=== PATIENT | male | born 1995 | race Caucasian/White ===

== ENCOUNTER 2020-09-25 20:51 | Emergency (ER) | payer OTHER ==
[~2020-09-25] VITALS: Ht 157.5 cm; Wt 93.0 kg
[~2020-09-25 20:51] MED LIST: PRO40 PO
[2020-09-25 21:20] VITALS: BP_SYST 152
--- NOTE | 2020-09-25 21:21 | NUR ---
Pt came in to the emergency department c/o testicular pain which has been present for 2 days. Pt claimed it has been progressively getting worse. Denied any accident/injuries. He didn't engage in heavy lifting, no discharge, no urinary problem. Pt breathing easy, ambulatory with steady gait, no other symptoms noted.
--- NOTE | 2020-09-25 21:28 | NUR ---
Patient triaged and placed in waiting room. VSS and patient appears in no acute distress at this time.Awaiting available bed, and MD notified of need for MSE.
--- NOTE | 2020-09-25 21:39 | NUR ---
ER in triage examining patient.
[2020-09-25] MEDS: KETOROLAC TROMETHAMINE 60 MG/2 ML VIAL IM ONE (23:56)
[2020-09-26] MEDS ORDERED: IBUP-1970 PO (00:18)
[2020-09-26] MEDS ORDERED: ONDA4TAB5 PO (00:30)
[2020-09-26 00:35] VITALS: BP_SYST 142
--- NOTE | 2020-09-26 00:35 | NUR ---
Patient given written and verbal discharge instructions and verbalizes understanding. ER MD discussed with patient the results and treatment provided. Patient in stable condition. ID arm band removed. Rx of Chalmers, Ibuprofen, and Zofran given. Patient educated on pain management and to follow up with PMD. Pain Scale 0. Opportunity for questions provided and answered. Medication side effect fact sheet provided.
== END 2020-09-26 00:35 | disposition home or self-care (01) ==
LOC: SED 20:51
DX: N43.3 Hydrocele, unspecified (principal); I86.1 Scrotal varices; Z79.899 Other long term (current) drug therapy
CPT/HCPCS: 76870; 96372; 99291; 99292; J1885